=== PATIENT | male | born 1950 | race African-American/Black ===

== ENCOUNTER 2018-05-06 10:58 | Outpatient (RCR) | payer MEDICARE, OTHER ==
[2018-07-10] MEDS ORDERED: AMLODIPINE BESY10 MG PO (14:18)
[2018-07-10] MEDS ORDERED: LOSARTAN-HCTZ1 EAC1 PO (14:18)
[2018-07-10] MEDS ORDERED: TRADJENTA PO (14:19)
[2018-07-10] MEDS ORDERED: METFORMIN HCL1000 M1 PO (14:20)
[2018-07-14] MEDS ORDERED: ULTRAM 50MG50 MG PO (08:22)
== END 2018-05-07 ==
LOC: PT 10:58
PROVIDERS: ATTEND Specialist
DX: M75.41 Impingement syndrome of right shoulder (principal); M25.511 Pain in right shoulder; M25.611 Stiffness of right shoulder, not elsewhere classified; M62.81 Muscle weakness (generalized); R29.3 Abnormal posture
CPT/HCPCS: 97110; 97161; G8984; G8985

== ENCOUNTER 2018-06-03 11:00 | Outpatient (RCR) | payer MEDICARE ==
[2018-07-10] MEDS ORDERED: AMLODIPINE BESY10 MG PO (14:18)
[2018-07-10] MEDS ORDERED: LOSARTAN-HCTZ1 EAC1 PO (14:18)
[2018-07-10] MEDS ORDERED: TRADJENTA PO (14:19)
[2018-07-10] MEDS ORDERED: METFORMIN HCL1000 M1 PO (14:20)
[2018-07-14] MEDS ORDERED: ULTRAM 50MG50 MG PO (08:22)
== END 2018-06-06 ==
LOC: PT 11:00
PROVIDERS: ATTEND Specialist
DX: M75.41 Impingement syndrome of right shoulder (principal); M25.511 Pain in right shoulder; M25.611 Stiffness of right shoulder, not elsewhere classified; M62.81 Muscle weakness (generalized); R29.3 Abnormal posture

== ENCOUNTER → 2018-07-14 | Day surgery (SDC) | payer MEDICARE, OTHER ==
[2018-07-10 15:07] LABS: BASOPHILS % 0.2 % (0.0-1.0); EOSINOPHILS # (AUTO) 0.1 (0.0-0.4); EOSINOPHILS % 1.6 % (0.0-6.0); HEMATOCRIT 41.5 % (38.2-49.6); HEMOGLOBIN 14.4 g/dL (14.0-18.0); LYMPHOCYTES # (AUTO) 2.2 (1.0-3.2); MEAN CORPUSCULAR HEMOGLOBIN 31.2 pg (28-32); MEAN CORPUSCULAR HGB CONC 34.7 g/dL (31-35); MONOCYTES # (AUTO) 0.3 (0.2-0.8); MONOCYTES % 6.4 % (4.4-11.3); NEUTROPHILS # (AUTO) 1.8 (2.1-6.9); NEUTROPHILS % 41.6 % (38.7-80.0); PLATELET COUNT 234 x10e3/uL (140-360); RED BLOOD COUNT 4.61 x10e6/uL (4.3-5.7); RED CELL DISTRIBUTION WIDTH 13.4 % (11.7-14.4)
[2018-07-10 15:27] LABS: ANION GAP 11.9 mmol/L (8-16); BLOOD UREA NITROGEN 8 mg/dL (7-26); BUN/CREATININE RATIO 8 (6-25); CALCIUM 9.6 mg/dL (8.4-10.2); CARBON DIOXIDE 27 mmol/L (22-29); CHLORIDE 100 mmol/L (98-107); CREATININE, SERUM 0.96 mg/dL (0.72-1.25); EST GLOMERULAR FILTRATION RATE > 60 ML/MIN (60-); GLUCOSE 97 mg/dL (74-118); POTASSIUM 3.9 mmol/L (3.5-5.1); SODIUM 135 mmol/L (136-145)
--- NOTE | 2018-07-10 15:40 | Diagnostic Imaging Report ---
EXAMINATION: CHEST 2 VIEWS INDICATION: ^PRE OP ^ANESTH PROT COMPARISON: None FINDINGS: PA and lateral views Limited by body habitus. TUBES and LINES: None. LUNGS: Lungs are well inflated. Lungs are clear. There is no evidence of pneumonia or pulmonary edema. PLEURA: No pleural effusion or pneumothorax. HEART AND MEDIASTINUM: The cardiomediastinal silhouette is unremarkable. BONES AND SOFT TISSUES: No acute osseous lesion. Cervical spine fusion hardware is seen. Soft tissues are unremarkable. UPPER ABDOMEN: No free air under the diaphragm. IMPRESSION: No acute thoracic abnormality. Signed by: Dr. Jermaine Cummings MD on 07/10/2018 3:37 PM
[~2018-07-14] MED LIST: AMLODIPINE BESY10 MG PO; CEFAZOLIN SOD 1 GM/D5W 50ML 50 ML IV ONE; DEXAMETHASONE SOD PHOS INJ 4 MG/ML VIAL ONE; EPINEPHRINE 1 MG/ML 30ML VIAL ONE; FENTANYL CITRATE/PF 100MCG/2 ML INJ ONE; GLYCOPYRROLATE INJ 1MG/ 5 ML SYR ONE; HYDROCODONE/APAP 7.5MG-325MG 1 EA TAB ONE; HYDROMORPHONE 2MG/ML 2 MG/ML ML ONE; LIDOCAINE 2%/ EPINEPHRINE 20ML MDV ONE; LIDOCAINE HCL 2% LOCAL INJ 5 ML SDV VIAL INJ ONE; LOSARTAN-HCTZ1 EAC1 PO; METFORMIN HCL1000 M1 PO; MIDAZOLAM HCL 2 MG/2 ML VIAL ONE; NEOSTIGMINE 5 MG/5ML SYR ONE; ONDANSETRON HCL INJ 2 MG/ML VIAL ONE; PHENYLEPHRINE HCL 1% 10 MG/ML VIAL ONE; PROPOFOL IV EMULSION 10 MG/ML 20 ML VIAL ONE; ROCURONIUM BROMIDE 10 MG/ML 5ML VIAL ONE; ROPIVACAINE 0.5% 5 MG/ML 30 ML SDV ONE; SEVOFLURANE INHAL SOLN 250 ML PEN BTL ONE; TRADJENTA PO; ULTRAM 50MG50 MG PO
--- OUTSIDE RECORDS SUMMARY | 2018-07-14 08:44 | XMS REPORT ---
Author [facility] Address Unknown Phone Unavailable Care Team Providers Care [employer] Football[employer] Name Role Phone BERE PEMBERTON Unavailable Unavailable Problems This patient has no known problems. Allergies, Adverse Reactions, Alerts This patient has no known allergies or adverse reactions. Medications This patient has no known medications. Results Test Description Test Time Test Comments Text Results Atomic Results Result Comments CHEST 2 VIEWS 2018-07-10 15:36:00 [place] [address] Patient Name: FREDY WEEMS MR #: [id number] : 1950 Age/Sex: 68/M Req #: [id number] Adm Physician: Ordered by: BERE PEMBERTON MD Report #: [id number] Location: OR Room/Bed: Procedure: [id number] DX/CHEST 2 VIEWS Exam Date: Exam Time: REPORT STATUS: Signed EXAMINATION: CHEST 2 VIEWS INDICATION: PRE OP ANESTH PROT COMPARISON: None FINDINGS: PA and lateral views Limited by body habitus. TUBES and LINES: None. LUNGS: Lungs are well inflated. Lungs are clear. There is no evidence of pneumonia or pulmonary edema. PLEURA: No pleural effusion or pneumothorax. HEART AND MEDIASTINUM: The cardiomediastinal silhouette is unremarkable. BONES AND SOFT TISSUES: No acute osseous lesion. Cervical spine fusion hardware is seen. Soft tissues are unremarkable. UPPER ABDOMEN: No free air under the diaphragm. IMPRESSION: No acute thoracic abnormality. Signed by: Dr. Jermaine Mendoza MD on 07/10/2018 3:37 PM Dictated By: JERMAINE MENDOZA MD 153 Transcribed By: AUTUMN on 07/10/181536 COPY TO: BERE PEMBERTON MD
--- NOTE | 2018-07-14 14:00 | Operative Report ---
DATE OF PROCEDURE: July 14, 2018 ACCOUNTING MANAGER: Juliocesar Alicea PA-C The patient was brought to the operating room for induction of anesthesia. Throughout this case, my PA's assistance was necessary for retraction of soft tissue and positioning of the extremity. This allows for efficient and technically successful execution of the operation and is considered medically necessary. PREOPERATIVE DIAGNOSIS: Right shoulder intractable impingement/partial thickness rotator cuff tear. POSTOPERATIVE DIAGNOSIS: Right shoulder intractable impingement/partial thickness rotator cuff tear. PROCEDURE: Right shoulder subacromial decompression and debridement of partial thickness rotator cuff tear. INDICATIONS: The patient is a 68-year-old gentleman with severe right shoulder pain. Clinic exam and MRI are consistent with intractable impingement and partial thickness rotator cuff tear. The findings and options have been discussed. The patient is highly motivated to proceed with more aggressive intervention. The risks and benefits of arthroscopy were explained. He states he understands and wishes to proceed. DESCRIPTION OF PROCEDURE: The patient was brought into the operating room and placed under general anesthetic. He received a regional block in the holding area. His right upper extremity was prepped and draped in a sterile manner. He was noted to have full passive elevation. A preoperative time out was performed. A standard posterior arthroscopy portal was established. The shoulder was insufflated with sterile saline and systematically inspected. He was noted to have a degenerative tear of the labrum and a moderate amount of synovitis. The biceps tendon, glenohumeral surfaces and articular surface of the rotator cuff were without any significant pathology. The scope was placed into the subacromial space. An aggressive subacromial bursectomy was necessary to be able to visualize the subacromial space. There was pronounced impingement from the anterior hook of the acromion. A bony subacromial decompression was performed. Further bursectomy was performed. The subacromial space was dramatically increased. The bursal surface of the rotator cuff was inspected. There was a partial thickness tear of the anterior supraspinatus. This was debrided back to healthy tissue using a combination of biting forceps and a mechanical shaver. Before and after photographs were taken throughout the case. The arthroscopic instruments were then removed. The portal incisions were closed with nylon stitches. A sterile bandage and an UltraSling were applied. Estimated blood loss was less than 10 mL. At the end of the procedure, needle and sponge counts were correct. Job#: [id number]
[2018-07-14 14:35] VITALS: BP 131/71
== END | disposition home or self-care (01) ==
LOC: OR 08:38
PROVIDERS: ATTEND Specialist
DX: M75.111 Incomplete rotator cuff tear or rupture of right shoulder, not specified as traumatic (principal); M75.41 Impingement syndrome of right shoulder; M65.811 Other synovitis and tenosynovitis, right shoulder; S43.431A Superior glenoid labrum lesion of right shoulder, initial encounter; E11.9 Type 2 diabetes mellitus without complications; I10 Essential (primary) hypertension; W18.39XA Other fall on same level, initial encounter; Y93.H2 Activity, gardening and landscaping; Y92.007 Garden or yard of unspecified non-institutional (private) residence as the place of occurrence of the external cause; Y99.8 Other external cause status; Z88.1 Allergy status to other antibiotic agents; Z01.810 Encounter for preprocedural cardiovascular examination; Z01.812 Encounter for preprocedural laboratory examination; Z01.818 Encounter for other preprocedural examination; Z79.84 Long term (current) use of oral hypoglycemic drugs; Z68.34 Body mass index [BMI] 34.0-34.9, adult
CPT/HCPCS: 29822; 36415 ×2; 71046; 80048; 82948; 85025; 93005; J0690; J1100; J1170; J2001 ×2; J2250; J2370; J2405; J2704; J2795; J3490

== ENCOUNTER 2018-09-03 08:55 | Outpatient (RCR) | payer MEDICARE, OTHER ==
[~2018-09-03 08:55] MED LIST changes: -CEFAZOLIN SOD 1 GM/D5W 50ML 50 ML IV ONE; -DEXAMETHASONE SOD PHOS INJ 4 MG/ML VIAL ONE; -EPINEPHRINE 1 MG/ML 30ML VIAL ONE; -FENTANYL CITRATE/PF 100MCG/2 ML INJ ONE; -GLYCOPYRROLATE INJ 1MG/ 5 ML SYR ONE; -HYDROCODONE/APAP 7.5MG-325MG 1 EA TAB ONE; -HYDROMORPHONE 2MG/ML 2 MG/ML ML ONE; -LIDOCAINE 2%/ EPINEPHRINE 20ML MDV ONE; -LIDOCAINE HCL 2% LOCAL INJ 5 ML SDV VIAL INJ ONE; -MIDAZOLAM HCL 2 MG/2 ML VIAL ONE; -NEOSTIGMINE 5 MG/5ML SYR ONE; -ONDANSETRON HCL INJ 2 MG/ML VIAL ONE; -PHENYLEPHRINE HCL 1% 10 MG/ML VIAL ONE; -PROPOFOL IV EMULSION 10 MG/ML 20 ML VIAL ONE; -ROCURONIUM BROMIDE 10 MG/ML 5ML VIAL ONE; -ROPIVACAINE 0.5% 5 MG/ML 30 ML SDV ONE; -SEVOFLURANE INHAL SOLN 250 ML PEN BTL ONE
== END 2018-09-04 ==
LOC: OT 08:55
PROVIDERS: ATTEND Specialist
DX: M75.41 Impingement syndrome of right shoulder (principal); S46.001D Unspecified injury of muscle(s) and tendon(s) of the rotator cuff of right shoulder, subsequent encounter; Z47.89 Encounter for other orthopedic aftercare; M25.511 Pain in right shoulder; M25.611 Stiffness of right shoulder, not elsewhere classified; R53.1 Weakness
CPT/HCPCS: 97139

== ENCOUNTER 2018-09-15 13:00 | Outpatient (RCR) | payer MEDICARE, OTHER | END 2018-10-05 | LOC: OT 13:00 | PROVIDERS: ATTEND Specialist | DX: M75.41 Impingement syndrome of right shoulder (principal); S46.001D Unspecified injury of muscle(s) and tendon(s) of the rotator cuff of right shoulder, subsequent encounter; Z47.89 Encounter for other orthopedic aftercare; M25.611 Stiffness of right shoulder, not elsewhere classified; R53.1 Weakness ==